=== PATIENT | female | born 1975 | race Hispanic/Latino ===

== ENCOUNTER 2024-07-26 19:18 | Emergency (ER) | payer OTHER ==
--- NOTE | 2024-07-26 20:20 | RAD REPORT ---
EXAM DESCRIPTION: Gayatri Single View07/26/2024 8:06 pm CLINICAL HISTORY: CHEST PAIN COMPARISON: No comparisons TECHNIQUE: Portable AP view of the chest. FINDINGS: The lungs are clear. No pneumothorax or effusion. The cardiomediastinal contours are unre markable. IMPRESSION: No acute cardiopulmonary process.
[2024-07-26] MEDS ORDERED: FAMOTIDINE 20 MG/2 ML VIAL IV ONE (20:27)
[2024-07-26] MEDS ORDERED: DIPHENHYDRAMINE 50 MG/ML VIAL ONE (20:27)
[2024-07-26] MEDS ORDERED: METHYLPREDNISOLONE 125 MG INJ ONE (20:27)
[2024-07-26 20:48] LABS: Absolute Lymphocytes (CBC) 0.6 K/uL (0.7-4.9); Absolute Monocytes 0.7 K/uL (0.1-1.3); Absolute Neutrophil 7.3 K/uL (1.8-8.0); Basophils % 0.3 % (0-1.3); Eosinophils % 0.4 % (0-4.4); Hematocrit 40.5 % (36.0-45.0); Hemoglobin 13.7 g/dL (12.0-15.0); Lymphocytes % 6.9 % (15.3-44.8); MCH 34.8 pg (27.0-35.0); MCHC 33.8 g/dL (32.0-36.0); MCV 103.1 fL (80-100); MPV 10.5 fL (7.6-11.3); Neutrophils % 84.4 % (41.7-73.7); Nucleated Red Blood Cells % 0.1 % (0-0); Platelets 173 thou/uL (152-406); RBC Red Blood Cell Count 3.93 M/uL (3.86-4.86); Red Cell Distribution Width 14.3 % (12.1-15.2)
[2024-07-26 21:05] LABS: Specific Gravity 1.019 (1.005-1.030); Sqamous Epithelial <5 /HPF (None Seen); Urine Bacteria None Seen /HPF (<20); Urine Bilirubin NEGATIVE (Negative); Urine Blood Negative (Negative); Urine Clarity Extremely Turbid (Clear); Urine Color Light-Yellow (Yellow); Urine Crystals Unidentified Few /HPF (None Seen); Urine Culture Reflex Order NOT NEEDED; Urine Glucose NEGATIVE (Negative); Urine Ketones NEGATIVE (Negative); Urine Microscopic Reflex YN ORDER UMIC; Urine Mucus Slight /HPF (None Seen); Urine Nitrite NEGATIVE (Negative); Urine Protein NEGATIVE (Negative); Urine RBC <5 /HPF (None Seen); Urine Urobilinogen Normal (Normal); Urine WBC <5 /HPF (<5); Urine Yeast (Budding) Occasional /HPF (None Seen)
[2024-07-26 21:06] LABS: Specific Gravity 1.019 (1.005-1.030)
[2024-07-26 21:16] LABS: D-Dimer 0.633 FEUug/mL (0-0.500); PT Prothrombin Time 10.4 SECONDS (9.4-12.5); Protime INR 0.93
[2024-07-26 21:27] LABS: Albumin 3.8 g/dL (3.4-5.0); Bilirubin Direct 0.2 mg/dL (0-0.2); Globulin 3.9 g/dL (2.3-3.5); Protein, Total 7.7 g/dL (6.4-8.2); Troponin High Sensitivity 3.7 pg/mL (<58.9)
[2024-07-26 21:37] LABS: Bilirubin Indirect, Calculated 0.7 mg/dL (0.2-0.8); Bilirubin Total 0.9 mg/dL (0.2-1.0)
--- NOTE | 2024-07-26 22:17 | RAD REPORT ---
EXAM DESCRIPTION: CT - Chest For Pe Angio - 07/26/2024 9:57 pm CLINICAL HISTORY: CHEST PAIN COMPARISON: Abdomen Pelvis W Contrast dated 07/26/2024; Chest Single View dated 07/26/2024 TECHNIQUE: Thin axial CT images of the chest were obtained following administration of 100 mL Isovue 370 IV contrast. Multiplanar reconstructions, and maximum intensity projection reconstructions were generated and reviewed. Exam utilizes a protocol for optimal evaluation of pulmonary arterial tree. All CT scans are performed using dose optimization technique as appropriate and may include automated exposure control or mA/KV adjustment according to patient size. FINDINGS: Pulmonary arteries are normal. No emboli or other suspicious finding. No acute or signific ant aorta findings. No mass or infiltrate in the lung parenchyma. No pleural thickening or pleural effusion. No pneumotho rax. No abnormal mediastinal or hilar masses or lymphadenopathy seen. No chest wall mass or abnormal axill iary lymphadenopathy. Cholelithiasis. IMPRESSION: No evidence of acute central pulmonary emboli. Cholelithiasis. No other significant findings.
--- NOTE | 2024-07-26 22:36 | RAD REPORT ---
EXAM DESCRIPTION: CT - Abdomen Pelvis W Contrast - 07/26/2024 9:58 pm CLINICAL HISTORY: ABD PAIN COMPARISON: No comparisons TECHNIQUE: Thin cut axial CT imaging of the abdomen and pelvis was performed following intravenous a dministration of 100 mL Isovue 370. Multiplanar reformats were generated and reviewed. All CT scans are performed using dose optimization technique as appropriate and may include automated exposure control or mA/KV adjustment according to patient size. FINDINGS: No suspicious findings in the lung bases. The liver, spleen, adrenal glands, and pancreas show no suspicious findings. Gallbladder shows varinder us layering calcified stones. Symmetric renal function is seen with no hydronephrosis or suspicious renal mass. No dilated bowel loops or bowel wall thickening. No free air, free fluid or inflammatory stranding. N o hernia, mass or bulky lymphadenopathy. The urinary bladder is without significant finding. No suspicious bony findings. IMPRESSION: Cholelithiasis. No other acute intra-abdominal process.
--- NOTE | 2024-07-26 23:14 | EDPHYS ---
Physician Documentation [facility] Name: Ladi Sandy Age: 49 yrs Sex: Female : 1975 Arrival Date: 07/26/2024 Time: 19:18 Bed 20 Private MD: ED Physician Jimi Nesbitt HPI: 07/26 19:50 This 49 yrs old Female presents to ER via Ambulatory with complaints of cp Abdominal Pain, Rash. 19:50 The patient presents with abdominal pain in the epigastric area, lower chest. cp 19:50 Onset: The symptoms/episode began/occurred yesterday. The symptoms do not radiate. cp Associated signs and symptoms: Pertinent positives: chest pain, Pertinent negatives: constipation, diarrhea, fever, shortness of breath, vomiting. 19:50 The symptoms are described as waxing/waning. Severity of pain: in the emergency cp department the pain is unchanged despite home interventions. Patient is a 49-year-old female who presents to the emergency department with complaints of epigastric lower mid chest pain that started this past Sunday. Patient also complains of a generalized rash and itching that she has had off and on since February. Patient reports she seen an grain handler and been evaluated and unfortunately has not found a cause. Patient reports she just finished a course of steroids but since Sunday the rash has reappeared and so she took a prednisone today. Patient denies any fevers, weight loss. Historical: - Allergies: 19:37 No Known Allergies; ap3 - Immunization history:: Client reports receiving the 2nd dose of the Covid vaccine. - Infectious Disease History:: Denies. - Social history:: Smoking status: Reported history of juuling and/or vaping. ROS: 19:55 Constitutional: Negative for body aches, chills, fever, poor PO intake, cp 19:55 Eyes: Negative for injury, pain, redness, and discharge, cp 19:55 ENT: Negative for drainage from ear(s), ear pain, sore throat, difficulty swallowing, difficulty handling secretions, 19:55 Cardiovascular: Positive for chest pain, of the lower mid chest, Negative for edema, palpitations, 19:55 Respiratory: Negative for cough, shortness of breath, wheezing, 19:55 Abdomen/GI: Positive for abdominal pain, of the epigastric area, Negative for vomiting, diarrhea, constipation, 19:55 Back: Negative for pain at rest, pain with movement, 19:55 Skin: Positive for rash, diffusely, 19:55 Neuro: Negative for altered mental status, dizziness, headache, syncope, weakness, 19:55 All other systems are negative, Exam: 20:00 Constitutional: The patient appears in no acute distress, alert, awake, cp non-diaphoretic, non-toxic, well developed, well nourished, uncomfortable, 20:00 Head/Face: Normocephalic, atraumatic. cp 20:00 Eyes: Periorbital structures: appear normal, Conjunctiva: normal, no exudate, no injection, Sclera: no appreciated abnormality, Lids and lashes: appear normal, bilaterally, 20:00 ENT: External ear(s): are unremarkable, Nose: is normal, Mouth: Lips: moist, Oral mucosa: pink and intact, moist, Posterior pharynx: Airway: no evidence of obstruction, patent, swelling, is not appreciated, erythema, is not appreciated, 20:00 Chest/axilla: Palpation: crepitus, is not appreciated, tenderness, is not appreciated, 20:00 Cardiovascular: Rate: normal, Rhythm: regular, Edema: is not appreciated, JVD: is not appreciated, 20:00 Respiratory: the patient does not display signs of respiratory distress, Respirations: normal, no use of accessory muscles, no retractions, labored breathing, is not present, Breath sounds: are clear throughout, no decreased breath sounds, no stridor, no wheezing, 20:00 Abdomen/GI: Inspection: abdomen appears normal, Bowel sounds: active, all quadrants, Palpation: soft, in all quadrants, moderate abdominal tenderness, in the epigastric area and right upper quadrant, rebound tenderness, is not appreciated, involuntary guarding, is not appreciated, 20:00 Back: CVA tenderness, is absent, 20:00 Skin: rash can be described as urticarial, on the chest, 20:37 ECG was reviewed by the Attending Physician. cp Vital Signs: 19:35 BP 149 / 93; Pulse 80; Resp 17; Temp 97.5; Pulse Ox 100% ; Weight 75.75 kg; Height 5 ap3 ft. 4 in. ; Pain 5/10; 21:18 BP 125 / 84; Pulse 80; Resp 18; Pulse Ox 100% on R/A; rg5 23:21 BP 139 / 89; Pulse 77; Resp 16; Pulse Ox 100% ; vc1 19:35 Body Mass Index 28.67 (75.75 kg, 162.56 cm) ap3 19:35 Pain Scale: Adult ap3 MDM: 19:28 Patient medically screened. cp 23:12 Data reviewed: vital signs, nurses notes, lab test result(s), EKG, radiologic studies, cp CT scan, plain films, and as a result, I will discharge patient. 23:12 Differential diagnosis: cholecystitis, Cholelithiasis, gastritis, non-specific abd cp pain, pancreatitis, Peptic Ulcer Disease, Perf. Duodenal Ulcer, Perf. Gastric Ulcer, Ureterolithiasis, urinary tract infection. I considered the following discharge prescriptions or medication management in the emergency department Medications were administered in the Emergency Department. See MAR. Independent interpretation of the following test(s) in the Emergency Department EKG: See my EKG interpretation above. Counseling: I had a detailed discussion with the patient and/or guardian regarding the historical points, exam findings, and any diagnostic results supporting the discharge/admit diagnosis, lab results, radiology results, the need for outpatient follow up, for definitive care, an allergy/wind farm support specialist, a general surgeon, to return to the emergency department if symptoms worsen or persist or if there are any questions or concerns that arise at home. Response to treatment: the patient's symptoms have markedly improved after treatment, and as a result, I will discharge patient. 07/26 19:48 Order name: Basic Metabolic Panel; Complete Time: 22:45 cp 07/26 22:45 Interpretation: Normal except: BUN 21; GFR 88. cp 07/26 19:48 Order name: CBC with Diff; Complete Time: 21:24 cp 07/26 21:24 Interpretation: Normal except: MCV 103.1; ALFONSO% 84.4; LYM% 6.9; LYMA 0.6. cp 07/26 19:48 Order name: D-Dimer; Complete Time: 21:24 cp 07/26 22:47 Interpretation: Abnormal: D-DIMER 0.633. cp 07/26 19:48 Order name: LFT's; Complete Time: 22:45 cp 07/26 22:45 Interpretation: Normal except: GLOB 3.9; A/G 1.0. cp 07/26 19:48 Order name: Magnesium; Complete Time: 22:45 cp 07/26 19:48 Order name: PT-INR; Complete Time: 21:24 cp 07/26 19:48 Order name: Troponin HS; Complete Time: 22:45 cp 07/26 19:48 Order name: Urinalysis w/ reflexes; Complete Time: 21:24 cp 07/26 19:48 Order name: Test, Urine; Complete Time: 21:24 cp 07/26 19:48 Order name: XRAY Chest (1 view); Complete Time: 21:24 cp 07/26 21:25 Order name: CT Chest For PE Angio; Complete Time: 22:45 cp 07/26 21:25 Order name: CT Abd/Pelvis - IV Contrast Only; Complete Time: 22:45 cp 07/26 22:46 Interpretation: Report reviewed. 07/26 19:48 Order name: Cardiac monitoring; Complete Time: 20:21 cp 07/26 19:48 Order name: EKG - Nurse/Tech; Complete Time: 20:33 cp 07/26 19:48 Order name: IV Saline Lock; Complete Time: 20:21 cp 07/26 19:48 Order name: Labs collected and sent; Complete Time: 20:21 cp 07/26 19:48 Order name: O2 Per Protocol; Complete Time: 20:21 cp 07/26 19:48 Order name: O2 Sat Monitoring; Complete Time: 20:21 cp EC:37 Rate is 71 beats/min. Rhythm is regular. CA interval is normal. QRS interval is normal. cp QT interval is normal. T waves are Inverted in lead aVR. Interpreted by me. Reviewed by me. Administered Medications: 20:32 Drug: Famotidine IVP 20 mg IVP once; dilute with 10 mL 0.9% NaCl; give over 2 minutes jj7 Route: IVP; Site: right antecubital; 23:25 Follow up: Response: No adverse reaction; Marked relief of symptoms vc1 20:32 Drug: MethylPrednisoLONE IVP 125 mg IVP once Route: IVP; Site: right antecubital; jj7 23:25 Follow up: Response: No adverse reaction; Marked relief of symptoms vc1 20:32 Drug: diphenhydrAMINE IVP 25 mg IVP once Route: IVP; Site: right antecubital; jj7 23:25 Follow up: Response: No adverse reaction; Marked relief of symptoms vc1 Disposition: 07/27 00:12 Co-signature as Attending Physician, Jimi Nesbitt MD I agree with the assessment sp4 and plan of care. I reviewed the patient's care provided by the Advanced Practice Provider and agree with the diagnosis and treatment plan. Disposition Summary: 07/26/24 23:13 Discharge Ordered Notes: Location: Home cp Problem: new cp Symptoms: have improved cp Condition: Stable cp Diagnosis - Other cholelithiasis without obstruction cp - Allergy, unspecified cp Followup: cp - With: Private Physician - When: 2 - 3 days - Reason: rash Followup: cp - With: Matt Jordan MD - When: 2 - 3 days - Reason: gallstones Discharge Instructions: - Discharge Summary Sheet cp - Allergies, Adult cp - Cholelithiasis cp - Allergy Skin Testing cp - Allergy Blood Testing cp Forms: - Medication Reconciliation Form cp - Antibiotic Education cp - Prescription Opioid Use cp - Patient Portal Instructions cp - Leadership Thank You Letter cp Prescriptions: - Pepcid 20 mg Oral Tablet - take 1 tablet ORAL route every 12 hours for 10 days; 20 tablet; Refills: 0, cp Product Selection Permitted - Zofran 4 mg Oral Tablet - take 1 tablet ORAL route every 12 hours As needed; 20 tablet; Refills: 0, cp Product Selection Permitted - Prednisone 20 mg Oral Tablet - take 2 tablets ORAL route once daily for 5 days; 10 tablet; Refills: 0, Product cp Selection Permitted Signatures: Dispatcher [employer] EDLA Devon Ha PA PA cp Prokisch, Amanda, RN RN ap3 Jerel Hoffman RN RN jj7 Jimi Nesbitt MD MD sp4 Shayna Marin RN vc1
--- NOTE | 2024-07-26 23:14 | ER ---
Nurse's Notes [facility] Name: Ladi Sandy Age: 49 yrs Sex: Female : 1975 Arrival Date: 07/26/2024 Time: 19:18 Bed 20 Private MD: Diagnosis: Other cholelithiasis without obstruction;Allergy, unspecified Presentation: 07/26 19:35 Chief complaint: Patient states: she has had a rash since February 2024. patient has been ap3 visiting multiple providers and has not been able to get any answers. patient also states she started steroids Sunday07/25/24, and is having epigastric pain that started afterwards as well. Coronavirus screen: At this time, the client does not indicate any symptoms associated with coronavirus-19. Ebola Screen: No symptoms or risks identified at this time. Initial Sepsis Screen: Does the patient meet any 2 criteria? No. Patient's initial sepsis screen is negative. Does the patient have a suspected source of infection? No. Patient's initial sepsis screen is negative. Risk Assessment: Do you want to hurt yourself or someone else? Patient reports no desire to harm self or others. Onset of symptoms is unknown. 19:35 Method Of Arrival: Ambulatory ap3 19:35 Acuity: MJ 3 ap3 Triage Assessment: 19:37 General: Appears uncomfortable, Behavior is calm, cooperative, appropriate for age. ap3 Pain: Complains of pain in xiphoid area Pain currently is 5 out of 10 on a pain scale. Neuro: Level of Consciousness is awake, alert, obeys commands, Oriented to person, place, time, situation. Cardiovascular: Patient's skin is warm and dry. Respiratory: Airway is patent Respiratory effort is even, unlabored, Respiratory pattern is regular, symmetrical. GI: Reports upper abdominal pain. Derm: Rash noted that is. Historical: - Allergies: 19:37 No Known Allergies; ap3 - Immunization history:: Client reports receiving the 2nd dose of the Covid vaccine. - Infectious Disease History:: Denies. - Social history:: Smoking status: Reported history of juuling and/or vaping. Screenin:39 Abuse screen: Denies threats or abuse. Nutritional screening: No deficits noted. ap3 Tuberculosis screening: No symptoms or risk factors identified. 20:00 [facility] ED Fall Risk Assessment (Adult) History of falling in the last 3 months, jj7 including since admission No falls in past 3 months (0 pts) Confusion or Disorientation No (0 pts) Intoxicated or Sedated No (0 pts) Impaired Gait No (0 pts) Mobility Assist Device Used No (0 pt) Altered Elimination No (0 pt) Score/Fall Risk Level 0 - 2 = Low Risk Oriented to surroundings, Maintained a safe environment, Educated pt \T\ family on fall prevention, incl call for assistance when getting out of bed, Assessed \T\ reinforced patient's understanding of fall precautions. Assessment: 20:00 General: Appears in no apparent distress. comfortable, Behavior is calm, cooperative, jj7 appropriate for age. Pain: Complains of pain in chest Pain does not radiate. Cardiovascular: Reports chest pain, Denies nausea, vomiting. 23:22 Reassessment: Patient and/or family updated on plan of care and expected duration. Pain vc1 level reassessed. Patient is alert, oriented x 3, equal unlabored respirations, skin warm/dry/pink. Patient states feeling better. Patient states symptoms have improved. Vital Signs: 19:35 BP 149 / 93; Pulse 80; Resp 17; Temp 97.5; Pulse Ox 100% ; Weight 75.75 kg; Height 5 ap3 ft. 4 in. ; Pain 5/10; 21:18 BP 125 / 84; Pulse 80; Resp 18; Pulse Ox 100% on R/A; rg5 23:21 BP 139 / 89; Pulse 77; Resp 16; Pulse Ox 100% ; vc1 19:35 Body Mass Index 28.67 (75.75 kg, 162.56 cm) ap3 19:35 Pain Scale: Adult ap3 ED Course: 19:24 Patient arrived in ED. im 19:24 Devon Ha PA is PHCP. cp 19:24 Camron Marshall MD is Attending Physician. cp 19:24 Jimi Nesbitt MD is Attending Physician. cp 19:37 Triage completed. ap3 19:39 Arm band placed on right wrist. ap3 20:00 Patient has correct armband on for positive identification. Bed in low position. Call jj7 light in reach. Adult w/ patient. Provided Education on: use of call rankin. 20:00 No provider procedures requiring assistance completed. jj7 20:05 Dalton, Juwairiyah, RN is Primary Nurse. jj7 20:07 XRAY Chest (1 view) In Process Unspecified. EDMS 20:19 Inserted saline lock: 20 gauge in right antecubital area, using aseptic technique. jj7 Blood collected. Flushed with 10 mL NS. 20:21 Test, Urine Sent. jj7 20:21 Basic Metabolic Panel Sent. jj7 20:21 CBC with Diff Sent. jj7 20:21 D-Dimer Sent. jj7 20:21 LFT's Sent. jj7 20:21 Magnesium Sent. jj7 20:21 PT-INR Sent. jj7 20:21 Troponin HS Sent. jj7 20:36 EKG done, by ED staff. af3 21:59 CT Chest For PE Angio In Process Unspecified. EDMS 22:00 CT Abd/Pelvis - IV Contrast Only In Process Unspecified. EDMS 23:12 Matt Jordan MD is Referral Physician. cp 23:22 IV discontinued, intact, bleeding controlled, No redness/swelling at site. Pressure vc1 dressing applied. Administered Medications: 20:32 Drug: Famotidine IVP 20 mg IVP once; dilute with 10 mL 0.9% NaCl; give over 2 minutes jj7 Route: IVP; Site: right antecubital; 23:25 Follow up: Response: No adverse reaction; Marked relief of symptoms vc1 20:32 Drug: MethylPrednisoLONE IVP 125 mg IVP once Route: IVP; Site: right antecubital; jj7 23:25 Follow up: Response: No adverse reaction; Marked relief of symptoms vc1 20:32 Drug: diphenhydrAMINE IVP 25 mg IVP once Route: IVP; Site: right antecubital; jj7 23:25 Follow up: Response: No adverse reaction; Marked relief of symptoms vc1 Medication: 20:00 VIS not applicable for this client. jj7 Outcome: 23:13 Discharge ordered by . cp 23:22 Discharged to home ambulatory, with significant other, vc1 23:22 Condition: improved 23:22 Discharge instructions given to patient, Instructed on discharge instructions, follow up and referral plans. medication usage, Demonstrated understanding of instructions, follow-up care, medications, Prescriptions given X 3, 23:24 Patient left the ED. vc1 Signatures: Dispatcher [employer] EDMS Page, Devon, PA PA cp Prokisch, Sarah, RN RN ap3 Shayna Marin, RN RN vc1 Jerel Hoffman RN RN jj7 Ilda Salgado Rommel, RN RN rg5 Alayna Ng
[2024-07-26 23:34] VITALS: TEMP 97.5; O2SAT 100
[2024-07-26 23:45] VITALS: BP 139/89
--- NOTE | 2024-07-29 12:45 | EKG ---
Test Date: 2024-07-26 Test Time: 20:33:52 Gas Furnace Installer: AF MEASUREMENT RESULTS: Intervals: Rate: 71 HI: 146 QRSD: 82 QT: 390 QTc: 423 [place]: P: 32 HI: 146 QRS: 26 T: 41 INTERPRETIVE STATEMENTS: Normal sinus rhythm Normal ECG No previous ECG available for comparison Electronically Signed On 07-29-24 12:40:54 CDT by Umesh Loomis
== END 2024-07-26 23:24 | disposition home or self-care (01) ==
LOC: ER 19:18
DX: K80.80 Other cholelithiasis without obstruction (principal); R21 Rash and other nonspecific skin eruption; T78.40XA Allergy, unspecified, initial encounter
CPT/HCPCS: 93005; 85025; 81001; 80048; 36415; 83735; 81025; 85610; 85379; 80076; 84484; 71275; 74177; 71045; 96375; 96374; 99284; Q9967; J1200; J2919